=== PATIENT | female | born 1955 | race Caucasian/White ===

== ENCOUNTER → 2016-08-13 17:49 | Outpatient (CLI) | payer MEDICAID ==
[2014-10-12 08:39] VITALS: BMI 33.7
[~2016-08-13 17:49] MED LIST: ACCUPRIL20 MG PO; ASPIRIN EC81 M1 PO; CALAN SR240 MG PO; CELEXA40 MG PO; ELIQUIS2.5 MG PO; HYDROCODONE-APA1 TAB PO; LIPITOR20 MG PO; NAPROSYN500 MG PO; PERCOCET 10/3251 TA1 PO; REMERON30 MG PO; TOPROL XL25 MG PO
== END | disposition home or self-care (01) ==
LOC: D.LABREF 17:49
DX: M17.11 Unilateral primary osteoarthritis, right knee (principal); Z11.8 Encounter for screening for other infectious and parasitic diseases

== ENCOUNTER 2016-08-28 08:30 | Inpatient (IN) | payer MEDICAID ==
[~2016-08-28] VITALS: Ht 162.6 cm; Wt 93.2 kg
[~2016-08-28 08:30] MED LIST changes: -ELIQUIS2.5 MG PO; -PERCOCET 10/3251 TA1 PO
[2016-08-28 08:41] LABS: BASOPHILS 0.4 % (0.0-2.0); EOSINOPHILS 2.6 % (0-7); HEMATOCRIT 47.2 % (36.0-48.0); HEMOGLOBIN 15.6 g/dL (12-16); IMMATURE GRANULOCYTES 0.3 % (0-5); LYMPHOCYTES 19.9 % (15-50); MCH 31.5 pg (26.0-34.0); MCHC 33.1 g/dL (31.0-37.0); MCV 95.4 fL (80.0-100.0); MEAN PLATELET VOLUME 10.7 fL (7.4-10.4); MONOCYTES 6.5 % (2-11); NEUTROPHILS 70.3 % (40-80); PLATELET COUNT 256 10x3/uL (130-400); RBC 4.95 10x6/uL (4.00-5.40); WBC 10.4 10x3/uL (4.8-10.8)
[2016-08-28 09:03] LABS: APPEARANCE CLEAR (CLEAR); BILIRUBIN NEGATIVE (NEGATIVE); COLOR STRAW (YELLOW); GLUCOSE NEGATIVE (NEGATIVE); KETONE NEGATIVE (NEGATIVE); LEUKOCYTE ESTERASE NEGATIVE (NEGATIVE); NITRITE NEGATIVE (NEGATIVE); PROTEIN NEGATIVE (NEGATIVE); UROBILINOGEN NORMAL (NORMAL)
[2016-08-28 09:07] LABS: ANION GAP 12.9 mmol/L (8-16); CALCIUM 9.6 mg/dL (8.5-10.1); CARBON DIOXIDE 29.8 mmol/L (21.0-32.0); CREATININE - SERUM 0.9 mg/dL (0.6-1.3); POTASSIUM - SERUM 3.7 mmol/L (3.5-5.1)
[2016-08-28 09:08] LABS: APTT 28.3 SECONDS (22.8-39.4); INR 0.93 (0.85-1.17); PROTIME 12.3 SECONDS (11.6-15.0)
[2016-09-01 07:29] VITALS: BP 158/90; BMI 35.2
--- NOTE | 2016-09-01 08:31 | NUR ---
HIBICLENS AND ALCOHOL WASH PRIOR TO CHLORPREP PER RENEA LOPEZ
[2016-09-01 10:50] VITALS: BP 125/69
--- NOTE | 2016-09-01 10:50 | NUR ---
RECEIVED TO ROOM 2208 FROM RECOVERY ROOM VIA BED. VSS. ORIENTED TO ROOM AND CALL LIGHT SYSTEM. CARE PLAN REVIEWED. PASSWORD OBTAINED. FAMILY AT BEDSIDE. CALL LIGHT IN REACH. WILL CONTINUE WITH PLAN OF CARE.
--- NOTE | 2016-09-01 11:34 | NUR ---
DAUGHTER CAME TO DESK AND STATED THEY HAD BEEN PUSHING THE CALL LIGHT BUT NO ONE HAS COME INTO THE ROOM. STATED THEY WERE PUCHING THE LIGHT ON THE BED THEN THE LIGHT ON THE REMOTE. ASKED WAS THERE SOMETHING WRONG. SHE STATED HER MOM WAS REALLY HURTING BADLY UNDER THE KNEE BUT DID NOT WANT TO COMPLAIN. PERCOCET GIVEN TO PATIENT FOR PAIN OF 6 TO RIGHT KNEE. ALSO EXPLAINED TO PATIENT THAT SHE SHOULD NOT LET PAIN GET BAD WITHOUT SAYING ANYTHING BECAUSE IT WOULD BE TOO HARD TO BRING IT DOWN AND SHE SHOULD TELL ME SOON SHE STARTS FEELING THE PAIN SO WE CAN START TREATING ME.
[2016-09-01 12:31] VITALS: BP 110/66
--- NOTE | 2016-09-01 12:57 | NUR ---
TCDB. STATES PAIN IS NOW A 0. CALL LIGHT IN REACH.
--- NOTE | 2016-09-01 14:45 | NUR ---
ASSESSMENT PER ADMIT PACK.PT WITHOUT DISTRESS.JOSE CONTROLLED.RLE WARM AND PINK.ICE PACK USE TO RIGHT KNEE.DRESSING RIGHT KNEE CLEAN,DRY AND INTACT.FAMILY AT BEDSIDE.CALL LIGHT USE INSTRUCTED.
[2016-09-01 14:52] VITALS: BP 125/69; Ht 162.6 cm; Wt 93.2 kg
--- NOTE | 2016-09-01 15:29 | NUR ---
C/O PAIN OF 6. PERCOCET PO. DAUGHTER IN ROOM. CALL LIGHT IN REACH.
[2016-09-01 16:19] VITALS: BP 113/72
--- NOTE | 2016-09-01 17:22 | NUR ---
EATING SUPPER AT THIS TIME. CALL LIGHT IN REACH.
--- NOTE | 2016-09-01 17:30 | NUR ---
CPM PLACED TO RIGHT KNEE. PAIN DECREASED TO A 2. ICE PACK REFILLED PER LANGUAGE TRANSLATOR AND PLACED TO KNEE.
--- NOTE | 2016-09-01 18:28 | NUR ---
NO CHANGES IN INITIAL ASSESSMENT. SCDs TO BLE. CPM ON. CALL LIGHT IN REACH. DAUGHTER IN ROOM. WILL CONTINUE WITH PLAN OF CARE.
[2016-09-01 19:00] VITALS: BP 140/57
--- NOTE | 2016-09-01 19:40 | NUR ---
TOOK PATIENT OFF OF BEDPAN. PATIENT DENIES OTHER NEEDS AT THIS TIME. BED IN LOWEST POSITION AND CALL LIGHT WITHIN REACH.
--- NOTE | 2016-09-01 20:40 | NUR ---
TOOK PATIENT OFF OF CPM MACHINE. PATIENT DENIES OTHER NEEDS AT THIS TIME.
[2016-09-02] VITALS: BP 122/61
[2016-09-02 04:00] VITALS: BP 143/88
[2016-09-02 05:13] LABS: HEMATOCRIT 37.1 % (36.0-48.0); MCH 30.8 pg (26.0-34.0); MCHC 32.3 g/dL (31.0-37.0); MCV 95.4 fL (80.0-100.0); MEAN PLATELET VOLUME 10.6 fL (7.4-10.4); RBC 3.89 10x6/uL (4.00-5.40); RDW 12.8 % (11.5-14.5); WBC 17.1 10x3/uL (4.8-10.8)
--- NOTE | 2016-09-02 07:00 | NUR ---
REPORT RECEIVED FROM CATEGORY DEVELOPMENT MANAGER NURSE. CALL LIGHT IN REACH.
[2016-09-02 07:53] VITALS: BP 122/66
--- NOTE | 2016-09-02 07:59 | NUR ---
ASSESSMENT COMPLETED. AM MEDS ADMINISTERED. ICE PACK FILLED AND PLACED TO KNEE. BED ALARM TURNED ON. CALL LIGHT IN REACH. SCDs TO BLE. WILL CONTINUE WITH PLAN OF CARE.
--- NOTE | 2016-09-02 09:50 | NUR ---
IV SALINE LOCKED PER MD ORDER. CALL LIGHT IN REACH.
[2016-09-02 12:04] VITALS: BP 125/71
--- NOTE | 2016-09-02 13:19 | NUR ---
SITTING IN CHAIR PER PT. STATES A PAIN OF 3-4 BUT DOES NOT WANT PAIN MEDS AT THIS TIME. CALL LIGHT IN REACH.
--- NOTE | 2016-09-02 13:20 | NUR ---
STILL DOES NOT WANT ANYTHING FOR PAIN AT THIS TIME. PAIN 3-4. ICE TO KNEE. WILL CONTINUE TO MONITOR.
--- NOTE | 2016-09-02 14:18 | NUR ---
ANSWERED PATIENT'S CALL LIGHT. PATIENT REQUESTED A BEDPAN. STATED SHE CANNOT AMBULATE TO THE BATHROOM DUE TO NUMBNESS IN HER RIGHT LEG. PATIENT STATED HER NUMBNESS IS STARTING TO GO AWAY AND SHE IS FEELING PAIN AND REQUESTING A PAIN PILL. NOTIFIED JUVE, PATIENT'S NURSE OF PATIENT'S REQUEST FOR PAIN MEDICATION. ASSISTED PATIENT ONTO THE BEDPAN. AN IN ROOM NOW ADMINISTERING MEDICATION.
--- NOTE | 2016-09-02 14:18 | NUR ---
PERCOCET PO. IV FLUSHED WITH NS. ICE PACK REFILLED AND PLACED TO KNEE. PLACED ON AND OFF BEDPAN. SCDs APPLIED BACK TO BLE. BED ALARM ON. PATIENT WHEEZING. WILL CALL DR. OTERO AND INFORM HIM.
[2016-09-02 15:32] VITALS: BP 114/64
--- NOTE | 2016-09-02 15:37 | NUR ---
SPOKE WITH DR. OTERO ABOUT WHEEZING. NEW ORDER FOR DUONEB PRN. STATES PAIN IS NOW A 3.
--- NOTE | 2016-09-02 16:50 | NUR ---
NO NEEDS VOICED AT THIS TIME. CALL LIGHT IN REACH.
--- NOTE | 2016-09-02 18:00 | NUR ---
UNABLE TO GET CPM TO WORK. WILL CALL PT. LIDIA PO. NO OTHER CHANGES IN INITIAL ASSESSMENT. SCDs TO BLE. BED ALARM ON. CALL LIGHT IN REACH. WILL CONTINUE WITH PLAN OF CARE.
--- NOTE | 2016-09-02 19:30 | NUR ---
RECIEVED SHIFT REPORT. PT IS LYING IN BED. ALERT AND ORIENTED AND ABLE TO VERBALIZE NEEDS. IV IS PATENT AND SALINE LOC AT THIS TIME. PT IS AMBULATORY WITH PHYSICAL THERAPY. SCD'S ON. DRESSING TO RIGHT KNEE C/D/I. PT STATES PAIN IS 7/10. NO NEEDS ARE VERBALIZED AT THIS TIME. WILL CONTINUE TO MONITOR. SIDE RAILS ARE UP X 2. BED IS IN LOWEST POSITION. BED ALARM IS ON FOR SAFETY. CALL LIGHT IS WITHIN REACH.
--- NOTE | 2016-09-02 21:59 | NUR ---
SHIFT ASSESSMENT COMPLETED. NIGHT MEDS GIVEN WITH NO PROBLMES. PT C/O PAIN 01/19. ADMINISTERED PRESCRIBED PRN NORCO PER ORDER. PT ALSO C/O INDIGESTION. ADMINISTERED PRESCRIBED PRN MYLANTA PER ORDER. PT ALSO REQUESTING PRN RESTORIL PER ORDER. DENIES FURTHER NEEDS. WILL MONITOR. SIDE RAILS X 2. BED LOW. CALL LIGHT IN REACH.
[2016-09-03 05:48] LABS: HEMATOCRIT 35.7 % (36.0-48.0); HEMOGLOBIN 11.3 g/dL (12-16); MCH 30.8 pg (26.0-34.0); MCHC 31.7 g/dL (31.0-37.0); MCV 97.3 fL (80.0-100.0); MEAN PLATELET VOLUME 10.5 fL (7.4-10.4); RBC 3.67 10x6/uL (4.00-5.40); RDW 13.1 % (11.5-14.5); WBC 13.2 10x3/uL (4.8-10.8)
--- NOTE | 2016-09-03 07:30 | NUR ---
REPORT RECEIVED FROM COMPOSITION TEACHER NURSE. CALL LIGHT IN REACH.
[2016-09-03 08:15] VITALS: BP 149/79
--- NOTE | 2016-09-03 08:15 | NUR ---
ASSESSMENT COMPLETED. NORCO PO WITH AM MEDS ADMINISTERED. SCDs TO BLE. BED ALARM ON. FAMILY AT BEDSIDE. CALL LIGHT IN REACH. WILL CONTINUE WITH PLAN OF CARE.
--- NOTE | 2016-09-03 09:22 | OP ---
PATIENT NAME: ROSE MARY NAVARRETE MEDICAL RECORD: [id number] :55 LOCATION:D.[facility] [id number] ADMISSION DATE:09/01/16 SURGEON: ALAN ISAAC MD DATE OF OPERATION: 09/01/2016 PREOPERATIVE DIAGNOSIS: Severe degenerative arthritis of the right knee. POSTOPERATIVE DIAGNOSIS: Severe degenerative arthritis of the right knee. PROCEDURE: Right total knee arthroplasty. SURGEON: Alan Isaac MD CALL CIRCUIT WORKER: Ling Wagner APN. INTRAOPERATIVE COMPLICATIONS: None. SUMMARY OF PATHOLOGIC FINDINGS: The patient has severe medial based joint line arthritis as well as severe patellofemoral arthritis with very large osteophytes. IMPLANTS USED: Arthrex iBalance system, size 5 distal femur, 12 polyethylene insert, 4 tibial baseplate and a size 30 patella resurfacing component. OPERATIVE SUMMARY IN DETAIL: After obtaining the appropriate preoperative orthopedic surgery consent as well as anesthetic consultation, evaluation and clearance, the patient was brought to the operating room and placed on supine position. After adequate general laryngeal mask airway was administered, tourniquet was placed about the proximal aspect of the right lower extremity. Right lower extremity was then prepped and draped in routine sterile fashion. Leg was elevated, exsanguinated and tourniquet was inflated to 350 mmHg. Routine midline incision was taken down for paramedian arthrotomy. Patella was everted, distal femur was exposed. Soft tissue excision was done in the usual fashion. Distal intramedullary guide hole was created for distal intramedullary guided distal femoral cutting. This was followed by a proximal tibial exposure. Intramedullary guide hole was created here likewise for intramedullary guided tibial cutting. Having completed this, appropriate measurements were taken. Chamfer cuts were made on the distal femur. Trial components were put into place, ranged and seated corresponding to the above final components. Final distal femoral and proximal tibial preparations were made. This was followed by excision of the arthritic surface of the patella. Final patellar preparations were made followed by irrigation and pulsatile lavage irrigation of the entire knee cavity. Final components were then cemented into place. All excess cement was removed. After the cement was allowed to harden, the knee was taken through a range of motion and found to be stable in all planes. Paramedian arthrotomy was closed with #2 Ethibond followed by #1 Vicryl and skin katherin. Sterile dressings were applied. Tourniquet was deflated. The patient was awakened, taken to the room in stable condition. All final needle and sponge counts were correct. TRANSINT:[id number] Voice Confirmation ID: [id number] DOCUMENT ID: [id number] OPERATIVE REPORT [id number] ROSE MARY NAVARRETE MD, ALAN W[place] at 0922 CC: [id number] DICTATION DATE: 09/01/16 1010 RAILROAD OPERATOR: 09/01/16 1027 ADM IN [place] [id number] [place] [id number]
--- NOTE | 2016-09-03 10:11 | NUR ---
PT SEEN AND ASSESSED FOR CHIEF TECHNOLOGIST. UP IN CHAIR CURRENTLY WITH LEGS ELEVATED. DRESSING NOTED TO RIGHT KNEE CLEAN DRY AND INTACT AND WRAPPED WITH MARIAMA WRAP. STATES PAIN CURRENTLY 01/19 BUT KNOWS IT WILL "CALM" DOWN WHEN SHE RESTS-WAS UP TO BSC WITH ASSIST WITH HEALTH SAFETY ENGINEER. CALL LIGHT IN REACH
--- NOTE | 2016-09-03 11:15 | NUR ---
DRSG TO RIGHT KNEE CHANGED. IV DC'D WITH TIP INTACT. PERCOCET PO. CALL LIGHT IN REACH.
[2016-09-03 12:26] VITALS: BP 146/73
--- NOTE | 2016-09-03 12:50 | NUR ---
09/03/2016 12:48 DCP: Discharge Planning Patient Name: ROSE MARY NAVARRETE Encounter No: [id number] : 1955 Primary Insurance: [place] [employer] Anticipated DC Date: 09-03-2016 Planned Disposition: Outpatient PT\OT External Planned Provider: [facility] DCP follow-up note: Patient and family in agreement with discharge plan. No changes to plan. DME has been delivered. Anticipate dc this afternoon. Case management will follow and assist as needed. Tena Matthews
[2016-09-03] MEDS ORDERED: ELIQUIS2.5 MG PO (13:07)
[2016-09-03] MEDS ORDERED: PERCOCET 10/3251 TA1 PO (13:08)
--- NOTE | 2016-09-03 13:32 | NUR ---
AMBULATED WITH PT IN HALLWAY AGAIN. NOW WAITING ON DC PAPERWORK.
--- NOTE | 2016-09-03 14:17 | NUR ---
DC INSTRUCTIONS EXPLAINED TO PATIENT THOROUGHLY. VERBALIZED UNDERSTANDING. RXs FOR PERCOCET AND ELIQUIS GIVEN TO PATIENT. ATTEMPTING TO GET IN TOUCH WITH HER RIDE BUT UNABLE AT THIS TIME.
--- NOTE | 2016-09-03 15:15 | NUR ---
INSTRUCTIONS ON HOW TO USE CPM EXPLAINED TO PATIENT AND PER [place] WITH PHYSICAL THERAPIST.
--- NOTE | 2016-09-03 15:19 | NUR ---
DC'D TO VEHICLE VIA WC WITH SEAN.
== END 2016-09-03 15:19 | disposition home or self-care (01) | DRG 470 ==
LOC: D.MS 09-01 06:32 → D.SDCHOLD 09-01 06:32 → D.MS 09-01 08:48 → D.SDCHOLD 09-01 09:00 → D.MS 09-03 15:19
PROVIDERS: ADMIT Orthopaedic Surgery
PROC: 0SRC0J9 Replacement of Right Knee Joint with Synthetic Substitute, Cemented, Open Approach (ICD-10-PCS; principal; 2016-09-01 09:00)
DX: M17.11 Unilateral primary osteoarthritis, right knee (principal); I10 Essential (primary) hypertension; F41.9 Anxiety disorder, unspecified; I25.10 Atherosclerotic heart disease of native coronary artery without angina pectoris; G47.00 Insomnia, unspecified; R06.2 Wheezing; F17.200 Nicotine dependence, unspecified, uncomplicated

== ENCOUNTER 2017-12-28 16:41 | Observation (INO) | payer MEDICARE ==
[~2017-12-28] VITALS: Ht 162.6 cm; Wt 95.1 kg
--- NOTE | ~2017-12-28 | OP ---
PATIENT NAME: ROSE MARY NAVARRETE MEDICAL RECORD: [id number] :55 LOCATION:[facility] [id number] ADMISSION DATE:12/28/17 SURGEON: ORA OSBORNE MD DATE OF OPERATION: 12/29/2017 PROCEDURES: 1. Left heart catheterization. 2. Selective coronary angiography. 3. Left ventriculogram. INDICATION: Chest pain compatible with angina, coronary artery disease, previous PTCA stent. PROCEDURE IN DETAIL: After informed consent was obtained and after a detailed description of risks, benefits as well as alternative therapies, the patient elected to proceed with angiogram and heart catheterization. The right radial area was prepped and draped in normal sterile fashion. Right radial artery was cannulated via modified Seldinger technique with placement of 5-Uzbek sheath. All catheters exchanged through this sheath. FINDINGS: Left ventriculogram was performed in standard 30-degree MCLEAN view, reveals good cardiac wall motion throughout all segments. Overall ejection fraction estimated 60%. SELECTIVE CORONARY ANGIOGRAPHY: 1. Left main is with no significant angiographic disease. 2. Left anterior descending has previously placed stent. This is widely patent with no significant restenosis. No disease elsewise at the LAD or its branches. 3. Left circumflex has moderate irregularities, but no flow-limiting stenosis. 4. Right coronary artery has no significant disease. OVERALL IMPRESSION: Wide patency of the previously placed stent, no disease elsewise, preserved LV function. Chest pain is noncardiac in etiology. No further cardiac workup needs to be ascertained. TRANSINT:[id number] Voice Confirmation ID: [id number] DOCUMENT ID: [id number] ORA OSBORNE MD at 1710 CC: [id number] DICTATION DATE: 12/29/17 1226 DESKTOP ANALYST: 12/29/17 1239 DIS IN 12/29/17 [facility] [address] [place] [address]
--- NOTE | ~2017-12-28 | DS ---
PATIENT:ROSE MARY HERR :55 MEDICAL RECORD: [id number] DISCHARGE SUMMARY ADMISSION DATE: 12/28/17 DISCHARGE DATE: 12/29/17 DISCHARGE DIAGNOSES: 1. Chest pain of unknown etiology. 2. Normal cardiac catheterization this admission. 3. Coronary artery disease. 4. Hypertension. 5. Hyperlipidemia. HOSPITAL COURSE: Ms. Herr presents with chest pain; however, cardiac catheterization is totally normal. Previously placed stent from 2010 is widely patent. No disease elsewise. Chest pain is noncardiac in etiology, most likely secondary to her smoking and pulmonary status. No other cardiac workup or treatment is necessary. TRANSINT:[id number] Voice Confirmation ID: [id number] DOCUMENT ID: [id number] ORA OSBORNE MD at 1710 CC: [id number] DICTATION DATE: 12/29/17 1224 SENIOR PROJECT COORDINATOR: 12/29/17 1301 DIS IN 12/29/17 [facility] [address] [place] [address]
--- NOTE | ~2017-12-28 | HEMODYNAMI ---
PATIENT:ROSE MARY NAVARRETE MEDICAL RECORD: [id number] : 55 LOCATION:[address] [facility]# [id number] ADMISSION DATE: 12/28/17 Generatedon:12/29/201712:25 Patient name: ROSE MARY NAVARRETE Patient #: [id number] SSN: : 1955 Date of study: 12/29/2017 Page: Of Hemodynamic Procedure Report Patient Data Patient Demographics Procedure consent was obtained First Name: ROSE MARY Gender: Female Last Name: LANDON : 1955 [facility] Initial: SHAY Age: 62 year(s) Patient #: [id number] Race: Unknown Additional ID: [id number] Contact details Address: [address] [place] [address] State: [facility] Zip code: [address] Past Medical History Allergies: No known allergies Admission Admission Data Admission Date: 12/28/2017 Admission Time: 18:56 Room #: D2123 Lab Results Lab Result Date: 12/28/2017 Lab Result Time: 17:20 Biochemistry Name Units Result Min Max BUN mg/dl 14 --(--*-)-- 7 18 Creatinine mg/dl 0.9 --(-*--)-- 0.6 1.3 CBC Name Units Result Min Max Hematocrit % 44.7 --(*---)-- 42 54 Hemoglobin g/dl 15.3 --(-*--)-- 13.5 17.5 Procedure Procedure Types Cath Procedure Diagnostic Procedure [facility] w/Coronaries Procedure Description Procedure Date Procedure Date: 12/29/2017 Procedure Start Time: 12:11 Procedure End Time: 12:24 Procedure Staff Name Function Grzegorz Lai MD Performing Physician Jatinder Evans RT Monitor Aleja Roman RT Scrub Walter Reynolds RN Nurse Procedure Data Cath Procedure Fluoroscopy Diagnostic fluoroscopy Total fluoroscopy Time: 2.9 time: 2.9 min min Diagnostic fluoroscopy Total fluoroscopy dose: 388 dose: 388 mGy mGy Contrast Material Contrast Material Type Amount (ml) Isovue 370 37 Entry Location Entry Primary Successful Side Size Upsize Upsize Entry Closure [place] ccessful Closure Location (Fr) 1 (Fr) 2 (Fr) Remarks Device Remarks Radial Right 6 Fr Mechanical artery Short Compression Estimated blood loss: 5 ml Diagnostic catheters Device Type Used For End Catheter Placement DIAGNOSTIC [place] 110cm 5 Procedure Fr catheter ([id number]) DIAGNOSTIC AR 2 MOD 5 Fr Procedure catheter ([id number]) Procedure Complications No complications Procedure Medications Medication Administration Route Dosage Oxygen etCO2 Nasal cannula 2 l/min Heparin Flush Bag added to field 2 bags (1000units/500ml NS) 0.9% NaCl I.V. 100 ml/hr Radial Cocktail added to field 1 syringe (Verapomil 2mg/Nitro 400mcg/Heparin 1500units) Fentanyl I.V. 50 mcg Versed I.V. 1 mg Fentanyl I.V. 50 mcg Versed I.V. 1 mg Fentanyl I.V. 50 mcg Radial Cocktail I.A. 1 syringe (Verapomil 2mg/Nitro 400mcg/Heparin 1500units) Fentanyl I.V. 50 mcg Versed I.V. 1 mg Hemodynamics Rest HGB: 15.3 (g/dl) Heart Rate: 60 (bpm) Snapshots Pre Cath Intra NCS Post Cath Vital Signs Time Heart Resp SPO2 etCO2 NIBP (mmHg) Rhythm Pain Sedation Rate (ipm) (%) (mmHg) Status Level (bpm) 12:02:07 68 16 94 0 177/84(151) NSR 0 (11) 10(A) , No pain 12:06:58 64 16 94 38.3 157/81(135) NSR 0 (11) 10(A) , No pain 12:11:44 68 17 94 50.3 121/79(104) NSR 0 (11) 10(A) , No pain 12:16:27 64 16 94 0 94/54(76) NSR 0 (11) 10(A) , No pain 12:21:06 69 16 92 0 102/61(80) NSR 0 (11) 10(A) , No pain Medications Time Medication Route Dose Verified Delivered Reason Notes Effectiveness by by 12:01:20 Oxygen etCO2 2 l/min Grzegorz Watson Per Nasal Joelle Reynolds RN physician cannula 12:01:28 Heparin Flush added 2 bags Grzegorz Watson used for Bag to Joelle Reynolds RN procedure (1000units/500ml field NS) 12:01:37 0.9% NaCl I.V. 100 Grzegorzroby Jerryy Per ml/hr Joelle Reynolds RN physician 12:01:52 Radial Cocktail added 1 Grzegorz Watson Per (Verapomil to syringe Joelle Reynolds RN physician 2mg/Nitro field 400mcg/Heparin 1500units) 12:08:09 Fentanyl I.V. 50 mcg Grzegorz Watson for sedation Joelle Reynolds RN 12:08:16 Versed I.V. 1 mg Grzegorz Jerryy for sedation Joelle Reynolds RN 12:10:29 Fentanyl I.V. 50 mcg Grzegorz Walter for sedation Joelle Reynolds RN 12:10:34 Versed I.V. 1 mg Grzegorz Walter for sedation Joelle Reynolds RN 12:12:19 Fentanyl I.V. 50 mcg Grzegorz Jerryy for sedation Joelle Reynolds RN 12:15:39 Radial Cocktail I.A. 1 Grzegorz Esquivelrey for (Verapomil syringe Joelle Lai MD vasodilation 2mg/Nitro 400mcg/Heparin 1500units) 12:15:47 Fentanyl I.V. 50 mcg Grzegorz Jerryy for sedation Joelle Reynolds RN 12:16:12 Versed I.V. 1 mg Grzegorz Jerryy for sedation Joelle Reynolds RN Procedure Log Time Note 11:40:32 Aleja Roman RT(R) sent for patient. Start room use. 11:41:02 Signed procedure consent form obtained from patient. 11:41:03 Time tracking: Regular hours (M-F 7:00 - 5:00) 11:41:10 Plan of Care:Hemodynamics will remain stable., Cardiac rhythm will remain stable., Comfort level will be maintained., Respiratory function will remain adequate., Patient/ family verbilizes understanding of procedure., Procedure tolerated without complication., Recovers from procedure without complications.. 11:41:21 H&P Date Dictated: 12/28/2017 Within 30 days and on chart., H&P Addendum completed by physician on day of procedure. (MUST COMPLETE FOR ALL OUTPATIENTS). 11:51:43 Patient received from Med II to CCL 1 Alert and oriented. Tansferred to table in Supine position. 11:51:44 Warm blankets applied, and ge[place] hugger turned on for patient comfort. 11:51:45 Correct patient and procedure confirmed by team. 11:51:45 ECG and BP/O2 sat monitors applied to patient. 11:51:47 Pre-procedure instructions explained to patient. 11:51:47 Pre-op teaching completed and patient verbalized understanding. 11:51:48 Family in waiting room. 11:51:49 Patient NPO since Midnight. 12:01:01 Vital chart was started 12:01:20 Oxygen 2 l/min etCO2 Nasal cannula was administered by Walter Reynolds RN; Per physician; 12:01:28 Heparin Flush Bag (1000units/500ml NS) 2 bags added to field was administered by Walter Reynolds RN; used for procedure; 12:01:37 0.9% NaCl 100 ml/hr I.V. was administered by Walter Reynolds RN; Per physician; 12:01:52 Radial Cocktail (Verapomil 2mg/Nitro 400mcg/Heparin 1500units) 1 syringe added to field was administered by Walter Reynolds RN; Per physician; 12:03:42 Baseline sample Acquired. 12:04:41 Rhythm: sinus rhythm 12:04:43 Full Disclosure recording started 12:05:06 Patient allergic to No known allergies 12:05:07 Is the patient allergic to Iodine/contrast media? No. 12:05:15 Is patient on blood thinner?No 12:05:17 Patient diabetic? No. 12:05:21 Previous problem with sedation/anesthesia? No ? 12:05:22 Snore? Yes 12:05:23 Sleep apnea? No 12:05:46 Deviated septum? No 12:05:46 Opens mouth fully? Yes 12:05:47 Sticks out tongue? Yes 12:05:53 Airway obstruction? Yes COPD 12:05:57 Dentures? No ? 12:06:00 Modified Tobias's test Ulnar < 7 seconds 12:06:02 Patient pain scale 0/10 ?. 12:06:07 IV patent on arrival in left forearm with 0.9% NaCl at [facility]. 12:06:50 Lab Result : BUN 14 mg/dl 12:06:50 Lab Result : Hemoglobin 15.3 g/dl 12:06:50 Lab Result : Creatinine 0.9 mg/dl 12:06:50 Lab Result : Hematocrit 44.7 % 12:06:52 Lab results completed and on chart. 12:06:54 Right Radial & Right Groin area was prepped with chlora-prep and draped in sterile fashion 12:06:55 Alarms reviewed by R. N. 12:06:55 Sharps counted by scrub and verified by R.N. 12:06:57 Use device set Radial Dx or PCI 12:06:58 ACIST Syringe (08178) opened to sterile field. 12:06:59 Medline Cath Pack ([id number]) opened to sterile field. 12:07:01 Bag Decanter (2002S) opened to sterile field. 12:07:01 ACIST Hand Control (28357) opened to sterile field. 12:07:02 ACIST Manifold (27687) opened to sterile field. 12:07:02 Tegaderm 4 x 4 (1626W) opened to sterile field. 12:07:04 MBrace Wrist Support ([id number]) opened to sterile field. 12:07:12 DIAGNOSTIC WIRE .035 260cm J wire (394456) opened to sterile field. 12:07:14 SHEATH 6Fr Prelude Radial ([id number]) opened to sterile field. 12:07:22 Physician arrived 12:07:22 --------ALL STOP TIME OUT------ 12:07:23 Final Timeout: patient, procedure, and site verified with staff and physician. All members of the team are in agreement. 12:07:24 Right Radial & Right Groin site verified by team. 12:07:27 Physical assessment completed. ASA score P 2 - A patient with mild systemic disease as per Grzegorz Lai MD. 12::29 Sedation plan: IV Moderate Sedation Medication:Versed, Fentanyl 12:08:09 Fentanyl 50 mcg I.V. was administered by Walter Reynolds RN; for sedation; 12:08:16 Versed 1 mg I.V. was administered by Walter Reynolds RN; for sedation; 12:09:42 Zero performed for pressure channel P1 12:10:29 Fentanyl 50 mcg I.V. was administered by Walter Reynolds RN; for sedation; 12:10:34 Versed 1 mg I.V. was administered by Walter Reynolds RN; for sedation; 12:11:29 Procedure started. 12:11:39 Local anesthetic to right radial artery with Lidocaine 2% by Grzegorz Lai MD.INITIAL ACCESS ONLY 12:11:46 A 6 Fr Short sheath was inserted into the Right Radial artery 12:12:19 Fentanyl 50 mcg I.V. was administered by Walter Reynolds RN; for sedation; 12:15:29 A DIAGNOSTIC [place] 110cm 5 Fr catheter (750674) was advanced over the wire and used for Procedure. 12:15:39 Radial Cocktail (Verapomil 2mg/Nitro 400mcg/Heparin 1500units) 1 syringe I.A. was administered by Grzegorz Lai MD; for vasodilation; 12:15:47 Fentanyl 50 mcg I.V. was administered by Walter Reynolds RN; for sedation; 12:16:12 Versed 1 mg I.V. was administered by Walter Reynolds RN; for sedation; 12:17:13 LV gram done using MCLEAN 12:17:15 Injector settings: Ml/sec: 5, Volume: 15, 12:17:25 EF : 60 % 12:17:36 LCA angiography performed. 12:18:53 Catheter exchanged over wire. 12:20:08 A DIAGNOSTIC AR 2 MOD 5 Fr catheter ([id number]) was advanced over the wire and used for Procedure. 12:20:18 RCA angiography performed. 12:20:22 Catheter removed. 12:20:27 TR BAND Standard ([id number]) opened to sterile field. 12:20:39 Sheath removed intact; hemostasis achieved with Mechanical Compression to the Right Radial artery. 12:20:40 Procedure ended.(Physican Out) 12::11 Fluoroscopy time 02.90 minutes. 12::14 Fluoroscopy dose: 388 mGy 12::14 Flurop Dose total: 388 12:22:18 Contrast amount:Isovue 370 37ml. 12:22:19 Sharps counted by scrub and verified by R.N. 12::21 TR band inflated with 10cc of air. 12:22:22 Insertion/operative site no bleeding no hematoma. 12:22:24 Post Procedure Pulses reassessed and unchanged 12:: Post-procedure physical assessment completed. ASA score P 2 - A patient with mild systemic disease as per Grzegorz Lai MD. ::29 Post procedure rhythm: unchanged. 12:22:32 Estimated blood loss: 5 ml 12:23:47 Post procedure instruction explained to patient.Patient verbalizes understanding. 12:23:48 Patient needs reinforcement of post procedure teaching. 12:24:37 Procedure and supply charges have been captured, reviewed, submitted and are correct. 12:24:39 Procedure Complication : No complications 12:24:41 Vital chart was stopped 12:24:42 See physician's report for complete and final results. 12:24:43 Report given to Pre/Post Procedure Room. 12:24:46 Patient transfered to Pre/Post Procedure Room with Stretcher. 12:24:47 Procedure ended. 12:24:47 Full Disclosure recording stopped 12:24:52 End room use (Document Last) Device Usage Item Name Manufacture Quantity Catalog Number Hospital Part Current M inimal Lot# / Charge Number Stock Stock Serial# Code ACIST Syringe Acist 1 94613 682965 962535 [id number] 2 0 (39723) [employer] Medline Cath Cardinal 1 [id number] 675503 20267 510501 5 Pack Health ([id number]) Bag Decanter Microtek 1 2002S 327572 10251 980518 5 (2002S) Medical Inc. ACIST Hand Acist 1 69862 072095 885193 497104 5 Control (65759) [employer] Inc ACIST Manifold Acist 1 84854 214920 482095 006867 5 (91614) [employer] Systems Inc Tegaderm 4 x 4 3M 1 1626W 457223 475009 231154 5 (1626W) MBrace Wrist Advanced 1 140-0250-00 660498 40266 119279 5 Support Vascular ([id number]) Dynamics DIAGNOSTIC WIRE St Tres 1 294915 399856 389957 581106 3 0 .035 260cm J wire (261880) SHEATH 6Fr Merit 1 [id number] 167179 283857 312454 5 Prelude Radial Medical ([id number]) DIAGNOSTIC Terumo 1 40-4394 843450 591807 968153 5 [place] 110cm 5 Fr catheter (638087) DIAGNOSTIC AR 2 Cardinal 1 [id number] 563087 950538 962548 2 0 MOD 5 Fr Health catheter (111779X) TR BAND Terumo 1 [id number] 520070 913893 954909 4 0 Standard ([id number]) Signature Audit [place] Stage Time Signature Unsigned Intra-Procedure 12/29/2017 Jatinder Evans 12:25:21 PM RT(R) Signatures Monitor : Jatinder Evans RT Signature : Date : Time : [address] [address]
[~2017-12-28 16:41] MED LIST changes: +ELIQUIS2.5 MG PO; +PERCOCET 10/3251 TA1 PO
[2017-12-28 17:45] VITALS: BP 151/84
[2017-12-28 18:04] LABS: APPEARANCE CLEAR (CLEAR); BILIRUBIN NEGATIVE (NEGATIVE); COLOR YELLOW (YELLOW); GLUCOSE NEGATIVE (NEGATIVE); KETONE NEGATIVE (NEGATIVE); NITRITE NEGATIVE (NEGATIVE); PROTEIN NEGATIVE (NEGATIVE); SPECIFIC GRAVITY 1.015 (1.005-1.020); UROBILINOGEN NORMAL (NORMAL)
[2017-12-28 18:13] LABS: BASOPHILS 0.1 % (0-2); EOSINOPHILS 0.3 % (0-7); HEMATOCRIT 44.7 % (36.0-48.0); HEMOGLOBIN 15.3 g/dL (12-16); IMMATURE GRANULOCYTES 0.2 % (0-5); LYMPHOCYTES 13.1 % (15-50); MCH 31.9 pg (26.0-34.0); MCHC 34.2 g/dL (31.0-37.0); MCV 93.3 fL (80.0-100.0); MEAN PLATELET VOLUME 10.8 fL (7.4-10.4); MONOCYTES 5.3 % (2-11); PLATELET COUNT 260 10x3/uL (130-400); RBC 4.79 10x6/uL (4.00-5.40); RDW 12.4 % (11.5-14.5); WBC 14.8 10x3/uL (4.8-10.8)
[2017-12-28 18:27] LABS: ALBUMIN 3.9 g/dL (3.4-5.0); ALKALINE PHOSPHATASE 115 U/L (46-116); ALT (SGPT) 29 U/L (10-68); BILIRUBIN - TOTAL 0.26 mg/dL (0.2-1.3); CALC OSMOLALITY 279 mosm/kg (275-300); CALCIUM 9.6 mg/dL (8.5-10.1); CARBON DIOXIDE 26.7 mmol/L (21.0-32.0); CHLORIDE - SERUM 102 mmol/L (98-107); CREATININE - SERUM 0.9 mg/dL (0.6-1.3); GLUCOSE 102 mg/dL (74-106); POTASSIUM - SERUM 3.8 mmol/L (3.5-5.1); PROTEIN - SERUM 7.9 g/dL (6.4-8.2); SODIUM 140 mmol/L (136-145); UREA NITROGEN 14 mg/dL (7-18); eGFR NON AFRICAN AMERICAN 67 mL/min (90-120)
[2017-12-28 18:39] LABS: AMYLASE - SERUM 54 U/L (25-115); CKMB 0.7 U/L (0.0-3.6); CREATINE KINASE 109 UL (21-215); LIPASE 99 U/L (73-393)
[2017-12-28 18:42] LABS: TROPONIN-I < 0.017 ng/mL (0.000-0.060)
[2017-12-28 19:11] VITALS: BP 146/79
[2017-12-28 19:29] LABS: CREATINE KINASE 106 UL (21-215)
[2017-12-28 19:35] LABS: TROPONIN-I < 0.017 ng/mL (0.000-0.060)
[2017-12-28 20:00] VITALS: BP 170/73
[2017-12-29 01:46] LABS: CKMB 0.7 U/L (0.0-3.6); CREATINE KINASE 102 UL (21-215); TROPONIN-I < 0.017 ng/mL (0.000-0.060)
[2017-12-29 03:58] VITALS: Ht 162.6 cm; Wt 95.1 kg
[2017-12-29 04:49] VITALS: BP 145/84
[2017-12-29 07:41] VITALS: BP 168/63
[2017-12-29 08:50] LABS: CKMB 0.9 U/L (0.0-3.6); CREATINE KINASE 102 UL (21-215); TROPONIN-I < 0.017 ng/mL (0.000-0.060)
[2017-12-29 09:23] LABS: BASOPHILS 0.3 % (0-2); EOSINOPHILS 0.9 % (0-7); HEMATOCRIT 44.3 % (36.0-48.0); HEMOGLOBIN 14.8 g/dL (12-16); IMMATURE GRANULOCYTES 0.1 % (0-5); LYMPHOCYTES 16.8 % (15-50); MCH 31.6 pg (26.0-34.0); MCHC 33.4 g/dL (31.0-37.0); MCV 94.5 fL (80.0-100.0); MEAN PLATELET VOLUME 10.8 fL (7.4-10.4); MONOCYTES 6.5 % (2-11); NEUTROPHILS 75.4 % (40-80); PLATELET COUNT 237 10x3/uL (130-400); RBC 4.69 10x6/uL (4.00-5.40); RDW 12.6 % (11.5-14.5); WBC 9.8 10x3/uL (4.8-10.8)
[2017-12-29 09:32] LABS: ANION GAP 12.7 mmol/L (8-16); CALCIUM 9.2 mg/dL (8.5-10.1); CARBON DIOXIDE 28.3 mmol/L (21.0-32.0)
[2017-12-29 11:52] VITALS: BP 132/66
== END 2017-12-29 14:26 | disposition home or self-care (01) ==
LOC: D.ER 16:41 → D.M2 18:56 → OBSVTIME 18:56 → D.CLR 12-29 12:31
PROVIDERS: Family Medicine; Internal Medicine Interventional Cardiology
DX: R07.89 Other chest pain (principal); I25.10 Atherosclerotic heart disease of native coronary artery without angina pectoris; Z95.5 Presence of coronary angioplasty implant and graft; I10 Essential (primary) hypertension; J44.9 Chronic obstructive pulmonary disease, unspecified; K21.9 Gastro-esophageal reflux disease without esophagitis; F32.9 Major depressive disorder, single episode, unspecified; E78.5 Hyperlipidemia, unspecified; Z72.0 Tobacco use

== ENCOUNTER → 2018-05-26 21:09 | Outpatient (CLI) | payer MEDICARE | END | disposition home or self-care (01) | LOC: D.MAMMO 11:30 | DX: Z12.31 Encounter for screening mammogram for malignant neoplasm of breast (principal) ==